=== PATIENT | female | born 1975 | race Caucasian/White ===

== ENCOUNTER 2018-11-24 10:18 | Emergency (ER) | payer OTHER ==
[~2018-11-24] VITALS: Ht 167.6 cm; Wt 93.0 kg
[2018-11-24] MEDS ORDERED: NORFLEX (10:51)
[2018-11-24] MEDS ORDERED: KETO10TA2 (10:51)
== END 2018-11-24 14:40 | disposition home or self-care (01) ==
LOC: ER 10:18
DX: S60.571A Other superficial bite of hand of right hand, initial encounter (principal); W57.XXXA Bitten or stung by nonvenomous insect and other nonvenomous arthropods, initial encounter; Y93.89 Activity, other specified; Y92.69 Other specified industrial and construction area as the place of occurrence of the external cause; Y99.8 Other external cause status